=== PATIENT | male | born 1975 | race Caucasian/White ===

== ENCOUNTER → 2018-07-04 | Emergency (ER) | payer BC ==
[~2018-07-04] VITALS: Ht 180.3 cm; Wt 97.5 kg
[~2018-07-04] MED LIST: CATHETER FLUSH 10 ML SYR IV PRN; IOHEXOL 350 MG/ML 100 ML (OMNIPAQUE 350) VIAL IV ONE; NS 100 ML (IVPB) BAG IV ONE; RECEIVED CONTRAST (Hold Metformin) IV SCH; RX-ONDANSETRON 4 MG ODT (ZOFRAN) PPK #4 ONE; RX-ONDANSETRON 4 MG ODT (ZOFRAN) PPK #4 SL STA
--- NOTE | 2018-07-04 14:49 | NUR ---
Helen cosme in [facility] - 07/04/18 at 1743 by [id number] PT LAYING IN BED BUT UNABLE TO URINATE, PHYSICIAN NOTIFIED OF THIS.
[2018-07-04 15:14] LABS: BILIRUBIN,URINE NEGATIVE (NEGATIVE); CLARITY,URINE CLEAR; COLOR,URINE YELLOW; GLUCOSE, URINE (UA) NEGATIVE (NEGATIVE); KETONES,URINE 1+ (NEGATIVE); LEUKOCYTE ESTERASE ,URINE NEGATIVE (NEGATIVE); NITRITE,URINE NEGATIVE (NEGATIVE); PH,URINE 5 (5-9); PROTEIN,URINE NEGATIVE (NEGATIVE); UROBILINOGEN,URINE NORMAL (NORMAL)
[2018-07-04 15:38] LABS: BACTERIA,URINE NEGATIVE /HPF; SQUAMOUS EPITHELIAL CELL,UR RARE /HPF; WBC,URINE 0-2 /HPF
--- NOTE | 2018-07-04 17:43 | NUR ---
PT COMPLAINING OF WAIT TIME TO RN ET PROVIDER. PT REASSURED HE WILL BE SEEN SOON POSSIBLE. PHYSICIAN NOTIFIED
[2018-07-04 18:44] LABS: BASOPHILS % (AUTO) 0 % (0-10); EOSINOPHILS % (AUTO) 1 % (0-10); HEMATOCRIT 44 % (40-54); HEMOGLOBIN 15.4 G/DL (13.3-17.7); LYMPHOCYTES % (AUTO) 31 % (12-44); MEAN CORPUSCULAR HEMOGLOBIN 31 PG (25-34); MEAN CORPUSCULAR HGB CONC 35 G/DL (32-36); MEAN CORPUSCULAR VOLUME 89 FL (80-99); MONOCYTES # (AUTO) 0.5 X 10^3 (0.0-1.0); MONOCYTES % (AUTO) 7 % (0-12); NEUTROPHILS # (AUTO) 3.8 X 10^3 (1.8-7.8); NEUTROPHILS % (AUTO) 61 % (42-75); PLATELET COUNT 187 10^3/uL (130-400); WHITE BLOOD COUNT 6.3 10^3/uL (4.3-11.0)
[2018-07-04 19:11] LABS: ALANINE AMINOTRANSFERASE 67 U/L (0-55); ALBUMIN 4.7 GM/DL (3.2-4.5); ALKALINE PHOSPHATASE 39 U/L (40-136); BILIRUBIN,TOTAL 0.7 MG/DL (0.1-1.0); BUN/CREATININE RATIO 12; CALCIUM 9.8 MG/DL (8.5-10.1); CARBON DIOXIDE 27 MMOL/L (21-32); CHLORIDE 103 MMOL/L (98-107); CREATININE SERUM 1.18 MG/DL (0.60-1.30); GFR ESTIMATED > 60; GLUCOSE 84 MG/DL (70-105); LIPASE 20 U/L (8-78); POTASSIUM 3.8 MMOL/L (3.6-5.0); SODIUM 143 MMOL/L (135-145); TOTAL PROTEIN 7.4 GM/DL (6.4-8.2)
--- NOTE | 2018-07-04 20:10 | Diagnostic Imaging Report ---
PROCEDURE: CT abdomen and pelvis with contrast. TECHNIQUE: Multiple contiguous axial images were obtained through the abdomen and pelvis after administration of intravenous contrast. INDICATION: Dysuria with lower abdominal pain. COMPARISON: None available. FINDINGS: Lower chest: The lung bases are clear. No pericardial or pleural effusion. Peritoneum: No free intraperitoneal air or fluid. Liver and biliary system: Diffuse hypoattenuation of the liver raises the possibility of hepatic steatosis. No focal hepatic lesion. The gallbladder is normal. No biliary duct dilation. Spleen and Pancreas: Spleen is normal. The pancreas enhances normally without mass lesion or peripancreatic inflammatory changes. Adrenals: Normal. tract: The kidneys enhance normally without suspicious mass or obstruction. Nonenhancing simple cyst in the mid posterior left kidney measures 1.1 x 1.0 cm. Urinary bladder is decompressed. Prostate is not enlarged. GI tract: Stomach is partially filled with air and there is no wall thickening. No bowel obstruction. No pericolonic inflammatory changes. Normal appendix. Vasculature and Lymph nodes: Normal caliber aorta. No abdominal or pelvic lymphadenopathy. Musculoskeletal: No concerning osseous lesion. No inguinal hernia. IMPRESSION: 1. No acute obstructive or inflammatory process in the abdomen or pelvis. 2. No inguinal hernia. 3. Potential diffuse hepatic steatosis. Dictated by: Dictated on workstation # [id number]
--- NOTE | 2018-07-04 20:41 | ED Abdominal Pain ---
General Chief Complaint: Abdominal/GI Problems Stated Complaint: NAUSEA,ABD PAIN,GEN WEAKNESS Nursing Triage Note: TO TRIAGE WITH COMPLAINTS OF BURING WITH URINATION X2 WEEKS AND LOWER ABD PAIN. NASUSEA STARTING IN THE LAST COUPLE OF DAYS. ALSO STATES IT FEELS LIKE HE IS SITTING ON A BALL IN THE RECTAL AREA ET THINKS HIS PROSTATE IS ENLARGED AGAIN. Sepsis Screen: No Definite Risk Source of Information: Patient Exam Limitations: No Limitations History of Present Illness Date Seen by Provider: Jul 04, 2018 Allergies and Home Medications Allergies Uncoded Allergies: PENICILLIN (Allergy, Unknown, 01/13/12) Home Medications Famotidine 20 Mg Tablet, 20 MG PO BID Prescribed by: KIRK PARK on 07/04/182038 Omeprazole 20 Mg Capsule.dr, 20 MG PO BID Prescribed by: KIRK PARK on 07/04/182038 Omeprazole Magnesium 20 Mg Tablet.dr, 20 MG PO DAILY, (Reported) Ondansetron 4 Mg Tab.rapdis, 4 MG SL Q4H PRN for NAUSEA/VOMITING Prescribed by: KIRK PARK on 07/04/182038 Past Tyuhtpu-Yzzolt-Suypeb Hx Patient Social History Alcohol Use: Rarely Uses Recreational Drug Use: No Smoking Status: Never a Smoker Recent Foreign Travel: No Contact w/Someone Who Travel: No Recent Infectious Disease Expo: No Recent Hopitalizations: No Past Medical History Surgeries: Yes (VERICOSE VEINS, VESECTOMY, ORAL) Respiratory: No Cardiac: No Neurological: No Genitourinary: Yes Prostate Problems Gastrointestinal: Yes (GERD) Musculoskeletal: No Endocrine: No HEENT: No Cancer: No Physical Exam Vital Signs Vital Signs - First Documented 07/04/18 14:00 Temp 98.6 Pulse 84 Resp 16 Pulse Ox 97 O2 Delivery Room Air Capillary Refill : Less Than 3 Seconds Height/Weight/BMI Height: 5'11.00" Weight: 215lbs. oz. 97.579999iu; BMI Method:Stated Progress/Results/Core Measures Results/Orders Lab Results Laboratory Tests Test 07/04/18 15:00 07/04/18 18:38 Range/Units Urine Color YELLOW Urine Clarity CLEAR Urine pH 5 5-9 Urine Specific [place] 1.020 1.016-1.022 Urine Protein NEGATIVE NEGATIVE Urine Glucose (UA) NEGATIVE NEGATIVE Urine Ketones 1+ H NEGATIVE Urine Nitrite NEGATIVE NEGATIVE Urine Bilirubin NEGATIVE NEGATIVE Urine Urobilinogen NORMAL NORMAL MG/DL Urine Leukocyte Esterase NEGATIVE NEGATIVE Urine RBC (Auto) NEGATIVE NEGATIVE Urine RBC NONE /HPF Urine WBC 0-2 /HPF Urine Squamous Epithelial Cells RARE /HPF Urine Renal Epithelial Cells NONE /HPF Urine Crystals NONE /LPF Urine Bacteria NEGATIVE /HPF Urine Casts NONE /LPF Urine Mucus SMALL H /LPF Urine Culture Indicated NO White Blood Count 6.3 4.3-11.0 10^3/uL Red Blood Count 5.00 4.35-5.85 10^6/uL Hemoglobin 15.4 13.3-17.7 G/DL Hematocrit 44 40-54 % Mean Corpuscular Volume 89 80-99 FL Mean Corpuscular Hemoglobin 31 25-34 PG Mean Corpuscular Hemoglobin Concent 35 32-36 G/DL Red Cell Distribution Width 12.0 10.0-14.5 % Platelet Count 187 130-400 10^3/uL Mean Platelet Volume 11.0 H 7.4-10.4 FL Neutrophils (%) (Auto) 61 42-75 % Lymphocytes (%) (Auto) 31 12-44 % Monocytes (%) (Auto) 7 0-12 % Eosinophils (%) (Auto) 1 0-10 % Basophils (%) (Auto) 0 0-10 % Neutrophils # (Auto) 3.8 1.8-7.8 X 10^3 Lymphocytes # (Auto) 2.0 1.0-4.0 X 10^3 Monocytes # (Auto) 0.5 0.0-1.0 X 10^3 Eosinophils # (Auto) 0.0 0.0-0.3 10^3/uL Basophils # (Auto) 0.0 0.0-0.1 10^3/uL Sodium Level 143 135-145 MMOL/L Potassium Level 3.8 3.6-5.0 MMOL/L Chloride Level 103 98-107 MMOL/L Carbon Dioxide Level 27 21-32 MMOL/L Anion Gap 13 5-14 MMOL/L Blood Urea Nitrogen 14 7-18 MG/DL Creatinine 1.18 0.60-1.30 MG/DL Estimat Glomerular Filtration Rate > 60 BUN/Creatinine Ratio 12 Glucose Level 84 70-105 MG/DL Calcium Level 9.8 8.5-10.1 MG/DL Corrected Calcium 8.5-10.1 MG/DL Total Bilirubin 0.7 0.1-1.0 MG/DL Aspartate Amino Transf (AST/SGOT) 31 5-34 U/L Alanine Aminotransferase (ALT/SGPT) 67 H 0-55 U/L Alkaline Phosphatase 39 L 40-136 U/L C-Reactive Protein High Sensitivity 0.24 0.00-0.50 MG/DL Total Protein 7.4 6.4-8.2 GM/DL Albumin 4.7 H 3.2-4.5 GM/DL Lipase 20 8-78 U/L My Orders Orders - KIRK CHESTER MD Cbc With Automated Diff (07/04/18 18:12) Comprehensive Metabolic Panel (07/04/18 18:12) Hs C Reactive Protein (07/04/18 18:12) Lipase (07/04/18 18:12) Saline Lock/Iv-Start (07/04/18 18:12) Ct Abdomen/Pelvis W (07/04/18 18:12) Iohexol Injection (Omnipaque 350 Mg/Ml 1 (07/04/18 18:45) Contrast Received (Contrast Received) (07/04/18 18:45) Sodium Chloride Flush (Catheter Flush Sy (07/04/18 18:45) Ns (Ivpb) (Sodium Chloride 0.9% Ivpb Bag (07/04/18 18:45) Rx-Ondansetron Po (Rx-Zofran Po) (07/04/18 20:53) Rx-Ondansetron Po (Rx-Zofran Po) (07/04/18 20:59) Medications Given in ED Current Medications Medications Dose Ordered Sig/Monique Route Start Time Stop Time Status Last Admin Dose Admin Iohexol 100 ml ONCE ONCE IV 07/04/18 18:45 07/04/18 18:46 DC 07/04/18 19:45 100 ML Sodium Chloride 10 ml NEEDED PRN IV 07/04/18 18:45 07/04/18 19:46 10 ML Sodium Chloride 100 ml ONCE ONCE IV 07/04/18 18:45 07/04/18 18:46 DC 07/04/18 19:46 80 ML Vital Signs/I&O 07/04/18 14:00 Temp 98.6 Pulse 84 Resp 16 B/P (MAP) Pulse Ox 97 O2 Delivery Room Air Departure Impression Primary Impression: Upper abdominal pain Additional Impressions: Nausea Acute diarrhea Disposition: 01 HOME, SELF-CARE Condition: Stable Departure-Patient Inst. Decision time for Depature: 20:38 Add. Discharge Instructions: Follow-up with your primary care provider as soon as possible. Discussed referral for endoscopy. Return to care if symptoms are worsening. Avoid the following: Eating large meals, eating close to bedtime, alcohol, tobacco products, citrus fruits and juices, tomato products, caffeine, carbonation, chocolate, mints, NSAID medications such as ibuprofen or naproxen, spicy foods, fatty or greasy foods or anything else you know irritates your stomach. Intensify your antacid therapy by taking omeprazole and Pepcid (famotidine) twice daily until otherwise instructed. Use Zofran (ondansetron) as prescribed for nausea and vomiting. All discharge instructions reviewed with patient and/or family. Voiced understanding. Scripts Ondansetron (Ondansetron Odt) 4 Mg Tab.rapdis 4 MG SL Q4H PRN for NAUSEA/VOMITING, #10 TAB Prov: KIRK CHESTER MD 07/04/18 Famotidine (Pepcid) 20 Mg Tablet 20 MG PO BID, #60 TAB Prov: KIRK CHESTER MD 07/04/18 Omeprazole (Omeprazole) 20 Mg Capsule.dr 20 MG PO BID, #60 CAP Prov: KIRK CHESTER MD 07/04/18 KIRK CHESTER MD Jul 04, 2018 20:41
[2018-07-04 21:42] VITALS: BP 129/82
== END | disposition home or self-care (01) ==
LOC: EDUNIT# 13:31 → ER 13:33
DX: R11.0 Nausea (principal); R19.7 Diarrhea, unspecified; R10.10 Upper abdominal pain, unspecified; K21.9 Gastro-esophageal reflux disease without esophagitis; Z88.0 Allergy status to penicillin; Z98.52 Vasectomy status
CPT/HCPCS: 36415; 74177; 80053; 81000; 83690; 85025; 86141; 99282

== ENCOUNTER → 2018-07-30 | Outpatient (CLI) | payer BC ==
[~2018-07-30] MED LIST changes: -CATHETER FLUSH 10 ML SYR IV PRN; +FAMO-119 PO; -IOHEXOL 350 MG/ML 100 ML (OMNIPAQUE 350) VIAL IV ONE; -NS 100 ML (IVPB) BAG IV ONE; +OMEP20CA12 PO; +OMEP20TA2 PO; +OMEP20TA33 PO; +ONDA4TAB11 SL; -RECEIVED CONTRAST (Hold Metformin) IV SCH; -RX-ONDANSETRON 4 MG ODT (ZOFRAN) PPK #4 ONE; -RX-ONDANSETRON 4 MG ODT (ZOFRAN) PPK #4 SL STA
--- NOTE | 2018-07-30 11:55 | Diagnostic Imaging Report ---
PROCEDURE: US Gallbladder. TECHNIQUE: Multiple real-time grayscale images were obtained over the right upper quadrant in various projections. INDICATION: Abdominal pain and diarrhea with nausea and bloating. FINDINGS: Liver is normal in size 16.2 cm. There is some mild increased echogenicity consistent with hepatic steatosis. No discrete liver mass is seen. Portal vein is patent and shows normal direction of flow. Gallbladder is without stones or sludge. No wall thickening or biliary ductal dilatation is seen. The pancreas is obscured by bowel gas. Right kidney is unremarkable. There is no ascites. IMPRESSION: Mild hepatic steatosis. No other significant abnormality is identified. Dictated by: Dictated on workstation # [id number]
== END ==
LOC: RAD 08:25
PROVIDERS: ATTEND Surgery
DX: K76.0 Fatty (change of) liver, not elsewhere classified (principal)
CPT/HCPCS: 76705

== ENCOUNTER → 2022-05-30 | Outpatient (CLI) | payer BC ==
[~2022-05-30] MED LIST changes: +CATHETER FLUSH 10 ML SYR IVP PRN; -OMEP20CA12 PO; +OMEP20CA18 PO
--- NOTE | 2022-05-30 11:58 | Diagnostic Imaging Report ---
RADIOPHARMACEUTICAL: 5.23mCi Tc-99m Choletec IV INDICATION: Right upper quadrant pain COMPARISON: 07/30/2018 TECHNIQUE: Anterior dynamic imaging for 45 minutes. Subsequently, patient ingested an 8 ounce can of ensure plus and additional imaging was obtained for 60 minutes. FINDINGS: There is homogenous uptake throughout the liver. The gallbladder is visualized at 10minutes and small bowel at 15minutes. After ingesting an 8 ounce can of ensure, there is normal contraction of the gallbladder with normal calculated GBEF at 59%. IMPRESSION: 1. Normal HIDA Scan without evidence of cystic or common duct obstruction. 2. Normal GBEF of 59%. Dictated by: Dictated on workstation # [id number]
== END ==
LOC: CARD 09:25
PROVIDERS: ATTEND Nurse Practitioner
DX: R10.11 Right upper quadrant pain (principal)
CPT/HCPCS: 78227; A9537